=== PATIENT | female | born 1940 | race Caucasian/White ===

== ENCOUNTER 2017-09-28 22:11 | Emergency (ER) | payer MEDICARE ==
[~2017-09-28] VITALS: Ht 154.9 cm; Wt 55.8 kg
[~2017-09-28 22:11] MED LIST: ALPRAZOLAM0.25 MG PO; BYSTOLIC10 MG PO; CLARITIN10 MG PO; EXFORGE 5-3201 EACH PO; IMODIUM A-D PO; OMEPRAZOLE40 MG PO; PRESERVISION T1 EACH PO; TUMS PO; TYLENOL PO; ZOCOR20 MG PO
--- NOTE | 2017-09-28 23:13 | Diagnostic Imaging Report ---
History:Fall Comparison studies:None Technique: Axial images were obtained from the skull base to the vertex. Coronal and sagittal images reconstructed from the axial data. Intravenous contrast: None Findings: Scalp/skull: No abnormalities. Extra-axial spaces: No masses. No fluid collections. Brain sulci: Mildly prominent. Ventricles: Mild compensatory dilatation. No hydrocephalus. Parenchyma: Subtle hypodensities in the supratentorial white matter are small vessel ischemic changes. No masses, hemorrhage, acute or chronic cortical vascular insults. Sellar/suprasellar region: No abnormalities. Craniocervical junction: Patent foramen magnum. No Chiari one malformation. Incidental findings: Scleral band in the partially visualized left lobe. Impression: No acute abnormalities. Minimal age-related supratentorial white matter small vessel ischemic changes. Signed by: Dr. Nadir Gibson M.D. on 09/28/2017 11:10 PM
--- NOTE | 2017-09-28 23:48 | Diagnostic Imaging Report ---
RIBS BILAT W/CXR HISTORY: Pain COMPARISON: None FINDINGS: Bones: Acute, minimally displaced fracture of the right 10th rib Dextrorotoscoliosis of the thoracic spine. Joints: The joint spaces are well-maintained. Soft tissues: Innumerable calcified granulomas through the lungs. Otherwise, no consolidation. No cardiomegaly, no pleural effusion or pneumothorax. IMPRESSION: Acute, minimally displaced fracture of the right 10th rib. Signed by: Dr. German Mckeon M.D. on 09/28/2017 11:44 PM
--- NOTE | 2017-09-28 23:51 | Diagnostic Imaging Report ---
FINGER RIGHT 3 VIEWS HISTORY: Right fifth finger deformity COMPARISON: None FINDINGS: Bones: Acute dorsal and lateral dislocation of the fifth proximal interphalangeal joint No evidence of acute fracture. Joints: Dorsal and lateral dislocation of the fifth proximal interphalangeal joint of the right hand Soft tissues: Diffuse soft tissue edema along the fifth digit IMPRESSION: Acute, dorsal and lateral dislocation of the fifth proximal interphalangeal joint Signed by: Dr. German Mckeon M.D. on 09/28/2017 11:47 PM
[2017-09-29] MEDS ORDERED: BUPIVACAINE HCL 0.25% 10ML MPF VIAL INJ ONE
[2017-09-29 00:42] VITALS: BP 141/64
[2017-09-29] MEDS ORDERED: ULTRAM 50MG50 MG PO (00:48)
== END 2017-09-29 01:11 | disposition home or self-care (01) ==
LOC: ER 22:11
DX: S22.31XA Fracture of one rib, right side, initial encounter for closed fracture (principal); S63.286A Dislocation of proximal interphalangeal joint of right little finger, initial encounter; W01.190A Fall on same level from slipping, tripping and stumbling with subsequent striking against furniture, initial encounter; Y93.01 Activity, walking, marching and hiking; Y92.008 Other place in unspecified non-institutional (private) residence as the place of occurrence of the external cause
CPT/HCPCS: 70450; 71111; 96372; 99284

== ENCOUNTER 2017-10-08 12:44 | Outpatient (RCR) | payer MEDICARE ==
[~2017-10-08 12:44] MED LIST changes: +ULTRAM 50MG50 MG PO
== END 2017-10-20 ==
LOC: OT 12:44
PROVIDERS: ATTEND Plastic Surgery
DX: S62.656D Nondisplaced fracture of middle phalanx of right little finger, subsequent encounter for fracture with routine healing (principal); M79.644 Pain in right finger(s); M79.641 Pain in right hand; M25.641 Stiffness of right hand, not elsewhere classified
CPT/HCPCS: 97110; 97165; G8987; G8988; L3933

== ENCOUNTER 2017-11-15 10:53 | Outpatient (RCR) | payer MEDICARE | END 2017-11-19 | LOC: OT 10:53 | PROVIDERS: ATTEND Plastic Surgery | DX: S62.656D Nondisplaced fracture of middle phalanx of right little finger, subsequent encounter for fracture with routine healing (principal); M79.644 Pain in right finger(s); M79.641 Pain in right hand; M25.641 Stiffness of right hand, not elsewhere classified | CPT/HCPCS: 97139 ==

== ENCOUNTER 2017-12-13 08:49 | Outpatient (RCR) | payer MEDICARE | END 2017-12-20 | LOC: OT 08:49 | PROVIDERS: ATTEND Plastic Surgery | DX: S62.626A Displaced fracture of middle phalanx of right little finger, initial encounter for closed fracture (principal) | CPT/HCPCS: 97022 ×6; 97110 ×6; G8987; G8988 ==

== ENCOUNTER 2021-04-19 05:32 | Emergency (ER) | payer MEDICARE ==
[~2021-04-19] VITALS: Ht 154.9 cm; Wt 55.8 kg
== END 2021-04-19 06:00 | disposition home or self-care (01) ==
LOC: ER 05:46
DX: R00.2 Palpitations (principal); I10 Essential (primary) hypertension; E78.5 Hyperlipidemia, unspecified; I48.91 Unspecified atrial fibrillation
CPT/HCPCS: 93005; 99282

== ENCOUNTER 2024-05-09 09:30 | Emergency (ER) | payer MEDICARE ==
[~2024-05-09] VITALS: Ht 154.9 cm; Wt 55.8 kg
[2024-05-09 09:59] VITALS: PULSE 65; RESP 18; TEMP 97.7; O2SAT 100
[2024-05-09 10:31] LABS: BASOPHILS # (AUTO) 0.1 (0.0-0.1); EOSINOPHILS # (AUTO) 0.2 (0.0-0.4); EOSINOPHILS % 3.1 % (0.0-6.0); HEMATOCRIT 40.8 % (34.2-44.1); HEMOGLOBIN 12.9 g/dL (12.0-16.0); LYMPHOCYTES # (AUTO) 0.8 (1.0-3.2); LYMPHOCYTES % 15.4 % (18.0-39.1); MEAN CORPUSCULAR HEMOGLOBIN 31.1 pg (28-32); MEAN CORPUSCULAR HGB CONC 31.6 g/dL (31-35); MEAN CORPUSCULAR VOLUME 98.3 fL (81-99); MONOCYTES # (AUTO) 0.4 (0.2-0.8); MONOCYTES % 8.5 % (4.4-11.3); NEUTROPHILS # (AUTO) 3.7 (2.1-6.9); NEUTROPHILS % 71.8 % (38.7-80.0); PLATELET COUNT 120 x10e3/uL (140-360); RED BLOOD COUNT 4.15 x10e6/uL (3.6-5.1); RED CELL DISTRIBUTION WIDTH 14.1 % (11.7-14.4)
[2024-05-09 11:33] LABS: ALBUMIN 3.5 g/dL (3.5-5.0); ALBUMIN/GLOBULIN RATIO 0.9 (0.8-2.0); ANION GAP 15.3 mmol/L (8-16); BILIRUBIN,TOTAL 0.6 mg/dL (0.2-1.2); CALCIUM 9.8 mg/dL (8.4-10.2); CREATININE, SERUM 1.52 mg/dL (0.57-1.11); POTASSIUM 4.3 mmol/L (3.5-5.1); TOTAL PROTEIN 7.2 g/dL (6.5-8.1)
[2024-05-09] MEDS ORDERED: BENZONATATE100 MG PO (12:18)
== END 2024-05-09 13:16 | disposition home or self-care (01) ==
LOC: ER 09:46
DX: R05.9 Cough, unspecified (principal); B34.9 Viral infection, unspecified; I48.91 Unspecified atrial fibrillation; Z79.01 Long term (current) use of anticoagulants; I10 Essential (primary) hypertension; E78.5 Hyperlipidemia, unspecified; Z11.52 Encounter for screening for COVID-19; Z95.810 Presence of automatic (implantable) cardiac defibrillator
CPT/HCPCS: 36415; 71046; 80053; 83880; 84484; 85025; 87400; 99284; U0002